=== PATIENT | female | born 1950 | race Caucasian/White ===

== ENCOUNTER 2016-07-21 14:29 | Outpatient (CLI) | payer OTHER, BC | END 2016-07-21 14:30 | disposition home or self-care (01) | DX: R05 Cough (principal); R61 Generalized hyperhidrosis; K44.9 Diaphragmatic hernia without obstruction or gangrene ==

== ENCOUNTER 2017-04-17 11:42 | Outpatient (CLI) | payer OTHER, BC | END 2017-04-17 11:43 | disposition EMS.NT | LOC: EMS 11:42 | PROVIDERS: ATTEND Surgery | DX: F41.9 Anxiety disorder, unspecified (principal) ==

== ENCOUNTER 2017-06-22 13:47 | Outpatient (CLI) | payer BC, OTHER ==
--- NOTE | 2017-06-23 17:20 | XRAY Report ---
DATE OF SERVICE: 06/22/2017 TWO VIEW RIGHT LOWER LE06/22/2017 CLINICAL INDICATION: Palpable abnormality anterior jack. Frontal and lateral views of the right lower leg demonstrate no evidence of fracture. No abnormal soft tissue calcification or ossification is seen in the anterior soft tissues. No foreign body is present. IMPRESSION: Normal right lower leg. TD: 06/23/2017 18:20
== END 2017-06-22 13:48 | disposition home or self-care (01) ==
LOC: DI 13:47
PROVIDERS: ATTEND Physician Assistant
DX: R22.41 Localized swelling, mass and lump, right lower limb (principal); M79.604 Pain in right leg

== ENCOUNTER 2018-07-15 10:47 | Outpatient (CLI) | payer BC ==
[2018-07-15 18:13] LABS: ALBUMIN 3.8 g/dL (3.2-5.5); ALBUMIN/GLOBULIN RATIO 1.3 (1.0-2.2); BILIRUBIN,TOTAL 0.6 mg/dL (0.2-1.0); CREATININE 0.5 mg/dL (0.4-1.0); TOTAL PROTEIN 6.7 g/dL (6.7-8.2)
[2018-07-15 18:16] LABS: BASOPHILS % (AUTO) 0.6 %; EOSINOPHILS # (AUTO) 0.2 10^3/uL (0.0-0.7); EOSINOPHILS % (AUTO) 3.3 %; HGB - HEMOGLOBIN 12.2 g/dL (12.0-16.0); LYMPHOCYTES # (AUTO) 1.6 10^3/uL (1.5-3.5); MEAN CORPUSCULAR HEMOGLOBIN 29.5 pg (27.0-31.0); MEAN CORPUSCULAR HGB CONC 32.3 g/dL (32.0-36.0); MEAN CORPUSCULAR VOLUME 91.5 fL (81.0-99.0); MEAN PLATELET VOLUME 9.9 fL (7.9-10.8); MONOCYTES # (AUTO) 0.4 10^3/uL (0.0-1.0); MONOCYTES % (AUTO) 8.1 %; NEUTROPHILS # (AUTO) 3.1 10^3/uL (1.5-6.6); PLT - PLATELET COUNT 164 10^3/uL (130-450); RED BLOOD COUNT 4.12 10^6/uL (4.20-5.40); RED CELL DISTRIBUTION WIDTH 13.8 % (12.0-15.0); WHITE BLOOD COUNT 5.3 x10^3/uL (4.8-10.8)
[2018-07-15 18:24] LABS: BILIRUBIN,URINE NEGATIVE (NEGATIVE); GLUCOSE, URINE (UA) NEGATIVE (NEGATIVE); KETONES,URINE (UA) NEGATIVE (NEGATIVE); LEUKOCYTE ESTERASE, URINE NEGATIVE (NEGATIVE); NITRITE,URINE NEGATIVE (NEGATIVE); OCCULT BLOOD,URINE TRACE-INTA (NEGATIVE); PROTEIN,URINE NEGATIVE (NEGATIVE); UROBILINOGEN,URINE 0.2 (NORMAL) E.U./dL (NORMAL)
[2018-07-15 19:49] LABS: CLARITY,URINE CLEAR (CLEAR)
[2018-07-15 19:50] LABS: BACTERIA,URINE None Seen /HPF (None Seen); RBC,URINE None Seen /HPF (0-5); SQUAMOUS EPITHELIAL CELL,UR NONE SEEN (<= Few)
== END 2018-07-15 10:48 | disposition home or self-care (01) ==
LOC: LAB.F 10:47
PROVIDERS: ATTEND Internal Medicine
DX: R30.0 Dysuria (principal); R25.2 Cramp and spasm
CPT/HCPCS: 36415; 80053; 81001; 82550; 85025

== ENCOUNTER 2019-02-27 11:02 | Outpatient (CLI) | payer BC ==
--- NOTE | 2019-02-28 08:53 | Ultrasound Report ---
Reason: LEFT LEG PAIN Procedure Date: 02/27/2019 Accession Number: [id number] / [id number] Procedure: US - Duplex Ext Veins Left CPT Code: FULL RESULT: EXAM: LEFT LOWER EXTREMITY VENOUS ULTRASOUND EXAM DATE: 02/27/2019 12:12 PM. CLINICAL HISTORY: Left leg pain for two days. History of left leg clot 1970s. On Statin until last week. COMPARISON: None. TECHNIQUE: Real-time sonographic vascular imaging was performed by the templer head through the lower extremity utilizing both color-flow and Doppler spectral analysis. Multiple medical service representative static images were saved for review. FINDINGS: Common Femoral Vein (CFV): Normal. CFV-GSV Junction: Normal. Profunda Femoral Vein (PFV): Normal. Femoral Vein (FV) Prox: Normal. Femoral Vein (FV) Mid: Normal. Femoral Vein (FV) Dist: Normal. Popliteal Vein: Normal. Posterior Tibial Veins: Normal. Peroneal Veins: Normal. Other: None. IMPRESSION: No evidence for deep venous thrombosis. RADIA
== END 2019-02-27 11:03 | disposition home or self-care (01) ==
LOC: DI 11:02
PROVIDERS: ATTEND Internal Medicine
DX: M79.605 Pain in left leg (principal)

== ENCOUNTER 2019-06-15 13:41 | Outpatient (CLI) | payer BC | END 2019-06-15 13:42 | disposition home or self-care (01) | LOC: LAB.S 13:41 | PROVIDERS: ATTEND Registered Nurse | DX: E67.8 Other specified hyperalimentation (principal); E67.2 Megavitamin-B6 syndrome | CPT/HCPCS: 36415; 81599; 82607; 83735; 84207 ==

== ENCOUNTER 2020-01-02 17:17 | Outpatient (CLI) | payer BC | END 2020-01-02 17:18 | disposition critical access hospital (66) | LOC: EMS 17:17 | PROVIDERS: ATTEND Surgery | DX: R55 Syncope and collapse (principal); R00.0 Tachycardia, unspecified; R09.89 Other specified symptoms and signs involving the circulatory and respiratory systems | CPT/HCPCS: A0425; A0427 ==

== ENCOUNTER 2022-07-15 20:15 | Outpatient (CLI) | payer MEDICARE | END 2022-07-15 20:16 | disposition short-term general hospital (02) | LOC: EMS 20:15 | DX: R53.1 Weakness (principal); R53.83 Other fatigue; R00.2 Palpitations; I48.91 Unspecified atrial fibrillation; R50.9 Fever, unspecified; U07.1 COVID-19 | CPT/HCPCS: A0425; A0427 ==

== ENCOUNTER 2023-03-29 15:27 | Emergency (ER) | payer MEDICARE ==
[2023-03-29 15:42] VITALS: O2SAT 100
--- NOTE | 2023-03-29 15:57 | ED Physician Documentation ---
PD HPI HEAD INJURY - Stated complaint Stated Complaint: HEAD INJ/FACE NUMBNESS - Chief complaint Chief Complaint: Trauma Hd/Nk - History obtained from History obtained from: Patient - Additional information Additional information: Patient is a 73-year-old female with a history of A-fib on Eliquis presenting for evaluation of a head injury that occurred about an hour ago. Patient was cleaning the bottom of a closet when a candle that was stored approximately 6 feet above her fell and hit her on the head. She denies LOC. She reports that while in triage she started feeling some paresthesia to the face but denies that it feels numb like when she has been to the dentist. Denies numbness anywhere else. Denies motor weakness. Denies headache. Review of Systems Constitutional: denies: Fever Cardiac: denies: Chest pain / pressure Respiratory: denies: Dyspnea GI: denies: Abdominal Pain Neurologic: reports: Head injury. denies: Syncope PD PAST MEDICAL HISTORY - Past Medical History Past Medical History: Yes Cardiovascular: High cholesterol, NC, Atrial fibrillation Respiratory: Asthma Neuro: CVA Endocrine/Autoimmune: None GI: GERD, Hiatal hernia CUSTOMER BUSINESS MANAGER: None : None HEENT: None Psych: None Musculoskeletal: Osteoarthritis, Other Derm: None - Past Surgical History Past Surgical History: Yes - Present Medications Home Medications: Ambulatory Orders Medication Instructions Recorded Confirmed Apixaban [Eliquis] 5 mg ORAL BID 03/29/23 03/29/23 Esomeprazole Magnesium [Nexium] 40 mg PO DAILY 03/29/23 03/29/23 Metoprolol Succinate [Toprol Xl] 50 mg PO DAILY 03/29/23 03/29/23 - Allergies Allergies/Adverse Reactions: Allergies Allergy/AdvReac Type Severity Reaction Status Date / Time codeine Allergy Intermediate confusion Verified 03/29/23 15:31 [id number] Reductase Allergy Unknown Verified 03/29/23 15:31 Inhibitor - Social History Does the pt smoke?: No Smoking Status: Former smoker Does the pt drink ETOH?: No Does the pt have substance abuse?: No - Immunizations Immunizations are current?: Yes Immunizations: Other immun not current PD ED PE NORMAL - General General: Alert and oriented X 3, No acute distress, Well developed/nourished - HEENT HEENT: Atraumatic, Moist mucous membranes, Pharynx benign - Neck Neck: Supple, no meningeal sign, No bony TTP - Cardiac Cardiac: RRR, Strong equal pulses - Respiratory Respiratory: No respiratory distress, Clear bilaterally - Abdomen Abdomen: Soft, Non tender, Non distended - Derm Derm: Warm and dry - Extremities Extremities: No deformity - Neuro Neuro: Alert and oriented X 3, yarn twister 2-12 intact, No motor deficit, No sensory deficit, Normal speech Eye Opening: Spontaneous Motor: Obeys Commands Verbal: Oriented GCS Score: 15 Results - Vitals Vitals: Vital Signs - 24 hr 03/29/23 03/29/23 15:33 17:10 Temperature 37 C 36.1 C L Heart Rate 83 75 Respiratory 16 14 Rate Blood Pressure 157/98 H 152/82 H O2 Saturation 100 100 Oxygen O2 Source Room air PD Medical Decision Making - ED course Complexity details: reviewed results, re-evaluated patient, d/w patient, d/w family ED course: Patient is a 73-year-old female presenting for evaluation of a head injury In the setting of being on a blood thinner. No focal deficits noted. She did report feeling mild paresthesias but this does not appear to be true numbness and has resolved. CT head and cervical spine were obtained without any acute findings. Patient has been well-appearing here without any decline in her condition. She is counseled regarding continued supportive care as well as concerning symptoms to return for. Departure - Departure Disposition: 01 Home, Self Care Clinical Impression: Head injury Condition: Stable Instructions: ED Head Injury Closed Comments: The CT scan of your head and cervical spine do not show any injuries or bleeding from your injury tonight. Please use acetaminophen as needed for pain. Return to the emergency department if you develop any worsening symptoms such as confusion, worsening headache, weakness. Forms: PCP List Discharge Date/Time: 03/29/23 17:11
--- NOTE | 2023-03-29 16:43 | CT Report ---
PROCEDURE: HEAD WO INDICATIONS: head injury on eliquis TECHNIQUE: Noncontrast 4.5 mm thick angled axial sections acquired from the foramen magnum to the vertex. For r adiation dose reduction, the following was used: automated exposure control, adjustment of mA and/or kV according to patient size. COMPARISON: Correlation is made with the accompanying cervical spine CT. FINDINGS: Image quality: Excellent. CSF spaces: Basal cisterns are patent. No extra-axial fluid collections. Ventricles are normal in size and shape. Brain: No midline shift. No intracranial masses or hemorrhage. Farooq-white matter interface is norm al. Skull and face: Calvarium and visualized facial bones are intact, without suspicious lesions. Sinuses: Visualized sinuses and mastoids are clear. IMPRESSION: No intracranial hemorrhage is seen. No significant intracranial abnormality is seen. Reviewed by: Darron Subramanian MD on 03/29/2023 3:41 PM [facility] Approved by: Darron Subramanian MD on 03/29/2023 3:41 PM [facility] Station ID: [id number]
--- NOTE | 2023-03-29 16:44 | CT Report ---
PROCEDURE: CERVICAL SPINE WO INDICATIONS: head inj TECHNIQUE: Noncontrast 3 mm thick sections acquired from the skull base to the T4 level. Sagittal and coronal r eformats were then constructed. For radiation dose reduction, the following was used: automated exp osure control, adjustment of mA and/or kV according to patient size. COMPARISON: Correlation is made with the accompanying head CT. FINDINGS: Image quality: Excellent. Bones: No fractures or dislocations. Visualized superior ribs are intact. Focal degenerative change can be seen involving the C1-C2 interface anteriorly. On the left, there is partial fusion of the facet joints. There is at least moderate disc space narrowing seen at C3-C4 an d C4-C5, with moderate disc space narrowing at C5-C6 and C6-C7. Posterior directed endplate osteophyt es are seen, which are worst at C3-C4 and at C4-C5. Soft tissues: Prevertebral soft tissues are normal in thickness. No paravertebral hematomas. No ap ical pneumothoraces. IMPRESSION: Negative for cervical spine fracture. Multiple levels of cervical spine degenerative change can be seen, which are worst at the C3-C4 and C 4-C5 levels. Reviewed by: Darron Subramanian MD on 03/29/2023 3:43 PM [facility] [place] Approved by: Darron Subramanian MD on 03/29/2023 3:43 PM [facility] [place] Station ID: [id number]
[2023-03-29 17:17] VITALS: BP 152/82
== END 2023-03-29 17:11 | disposition home or self-care (01) ==
LOC: ED 15:27
DX: I48.91 Unspecified atrial fibrillation (principal); Z79.01 Long term (current) use of anticoagulants; Z87.891 Personal history of nicotine dependence; S09.90XA Unspecified injury of head, initial encounter; W20.8XXA Other cause of strike by thrown, projected or falling object, initial encounter; Y93.E9 Activity, other interior property and clothing maintenance
CPT/HCPCS: 99283; 99284